=== PATIENT | female | born 1980 | race Caucasian/White ===

== ENCOUNTER 2023-10-24 13:22 | Observation (INO) | payer OTHER, SELFPAY ==
[2023-10-24] VITALS (8 sets, daily range): BP systolic 90–120; BP diastolic 36–61; PULSE 35–54; RESP 12–18; TEMP 36.6; O2SAT 10–100; BMI 23.0
[2023-10-24 14:19] LABS: Basophils # 0.1 10^3/uL (0.0-0.1); Basophils % 0.8 %; Eosinophils # 0.2 10^3/uL (0.0-0.8); Eosinophils % 2.8 %; Hematocrit 40.2 % (36-47); Lymphocytes # 2.2 10^3/uL (0.8-4.8); Lymphocytes % 35.8 %; Mean Corpuscular HGB Conc 33.3 g/dL (30-55); Mean Corpuscular Hemoglobin 32.4 pg (27-33); Mean Corpuscular Volume 97.1 fl (85-98); Mean Platelet Volume 8.8 fL (7.4-10.4); Monocytes # 0.3 10^3/uL (0.2-0.9); Monocytes % 4.7 %; Neutrophils % 55.7 %; Nucleated Red Blood Cells % 0 %; Platelet Count 295 10^3/cmm (157-399); Red Blood Count 4.14 10^6/uL (3.85-5.65); Red Cell Distribution Width 11.8 % (12.1-15.1); White Blood Count 6.11 10^3/uL (3.29-11.43)
[2023-10-24 14:35] LABS: HCG, Serum Qual Negative (Negative)
[2023-10-24 14:37] LABS: Alanine Aminotransferase 13 U/L (0-33); Albumin Level 4.3 g/dL (3.5-5.2); Alkaline Phosphatase 61 U/L (35-105); Anion Gap 11.7 (5-19); Aspartate Amino Transferase 16 U/L (0-32); Blood Urea Nitrogen 7 mg/dL (6-20); Calcium 9.2 mg/dL (8.5-10.5); Carbon Dioxide 29 mmol/L (22-29); Chloride 102 mmol/L (98-107); Creatinine Clr Calc Pharmacy 78.7667; Globulin 2.3 g/dL (1.3-4.6); Glomerular Filtration Rate 78.3 mL/min (90-130); Glucose 89 mg/dL (65-115); Lipase 12 U/L (13-60); Osmolality Calculated 283 mOsm/kg (285-295); Potassium 4.7 mmol/L (3.5-5.1); Sodium 138 mmol/L (136-145); Total Bilirubin 0.3 mg/dL (0.15-1.2); Total Protein 6.6 g/dL (6.6-8.7)
--- NOTE | 2023-10-24 15:30 | ED_ITS ---
Documented by User: Kingsley Roach DO 10/25/23 07:47 HPI - Back Pain/Injury 2 General: Chief Complaint: Back Pain/Injury Stated Complaint: n/v, abd pain, back pain, dizzy Time Seen by Provider: 10/24/23 15:30 Source: patient Mode of arrival: ambulatory History of Present Illness: 43-year-old female presents emergency ro om with complaining of back pain radiating into the groin area and suprapubic region. She is complaining of nausea with abdominal pain history of kidney stones. She denies any dysuria urgency or frequency no hematuria. Symptoms been going on for the last couple of days. No trauma. No fever sweats chills vomiting or diarrhea. No chest pain or shortness of breath MD elicited complaint: back pain Onset (ago): minute(s) Timing: constant Radiation: none Exacerbating factors: none Relieving factors: none Associated symptoms: Deny abdominal pain, arthralgias, chills, change in bowel habits, difficulty walking, dysuria, fatigue, fecal incontinence, fever(s), hematuria, myalgias, nausea, numbness, syncope, tingling/numbness/burning, urinary frequency, urinary urgency, vomiting or weakness Work related injury: No Review of Systems 2 Const: Denies: fever(s), chills or fatigue Card: Denies: chest pain or syncope Resp: Denies: dyspnea GI: Denies: abdominal pain, nausea, vomiting, fecal incontinence or change in bowel habits : Denies: dysuria, urinary frequency, urinary urgency or hematuria Musc: Denies: neck pain or back pain Skin/Breast: Denies: rash Neuro: Denies: difficulty walking PFSH ED 2 PFSH: Medical History History of PCOS Endometriosis Tobacco use disorder Obesity Nephrolithiasis Surgical History H/O: hysterectomy H/O gastric sleeve Family History Grandfather Heart disease Grandmother No problems noted. Mother Diabetes mellitus, type 2 Social History Smoking and tobacco/nicotine status: current every day tobacco/nicotine user Quit status (tobacco/nicotine): considering quitting Alcohol intake: never Substance/Drug Use: never Physical Exam 2 Const: GENERAL APPEARANCE: cooperative and comfortable O RIENTATION/CONSCIOUSNESS: Yes awake, Yes oriented to person, Yes oriented to place and Yes oriented to time HENMT: COMMON NORMALS: normocephalic, atraumatic and hearing grossly normal bilaterally HEAD & SCALP: normocephalic and atraumatic Resp: COMMON NORMALS: normal respiratory effort, No retractions, No use of accessory muscles and clear to auscultation bilaterally AUSCULTATION: clear to auscultation bilaterally Cardio: COMMON NORMALS: regular rate, regular rhythm and No murmurs present (Cardio) RATE: regular rate RHYTHM: regular rhythm GI: COMMON NORMALS: Soft to palpation and No hepatosplenomegaly present A USCULTATION: Yes normoactive bowel sounds PALPATION: Yes Soft to palpation, No Tenderness to palpation present (GI), No Guarding due to palpation present (GI) and Yes No hepatosplenomegaly present Extremity: COMMON NORMALS: normal to inspection, capillary refill normal, no clubbing, cyanosis or edema, no calf tenderness and no pedal edema Neuro: SENSORIUM/ORIENTATION: Yes oriented to person, Yes oriented to place and Yes oriented to time Skin: COMMON NORMALS: no rashes or lesions noted GENERAL SKIN EXAM: no rashes or lesions noted Course 2 Vital Signs: Vital signs: Vital Signs Temperature 98.1 F 10/25/23 07:36 Pulse Rate 44 L 10/25/23 07:36 Respiratory Rate 15 10/25/23 07:36 Blood Pressure 115/62 10/25/23 07:36 Pulse Oximetry 96 10/25/23 07:36 Oxygen Delivery Me thod Room Air 10/25/23 07:36 MDM - Back Pain/Injury Medical Decision Making Care signed out to Dr. Espitia at change of shift. See final notes for diagnosis and disposition. I have discussed the patient's case with the off going physician <Dr. Roach > and I have assumed care of the patient. We have discussed the current lab/radiographic results that have been resulted and the pending tests and the need for admission. Labs 10/25/23 04:28 10/25/23 04:28 Radiology Impressions Abdomen/Pelvis CT 10/24/23 17:[address]: 1[address] No [address] evidence of acute intra-abdominal or pelvic pathology. 2. Additional findings, as above. COMMENTS: Consistent with the [employer]'s Incidental Findings Committee white paper (J Am Rossy Radiol 2018): Any incidental renal lesion less than 1 cm or classified as too small to characterize, or any incidental cystic renal lesion characterized as simple-appearing, is likely benign. No follow-up imaging is recommended for these lesions per consensus recommendations based on imaging criteria. Chest X-Ray 10/24/23 17:12 IMPRESSION: No acute radiographic findings. Laboratory Results WBC 6.11 10^3/uL (3.29-11.43) 10/24/23 14:05 RBC 4.14 10^6/uL (3.85-5.65) 10/24/23 14:05 Hgb 13.40 g/dL (11.27-16.99) 10/24/23 14:05 Hct 40.2 % (36-47) 10/24/23 14:05 MCV 97.1 fl (85-98) 10/24/23 14:05 MCH 32.4 pg (27-33) 10/24/23 14:05 MCHC 33.3 g/dL (30-55) 10/24/23 14:05 RDW 11.8 % (12.1-15.1) L 10/24/23 14:05 Plt Count 295 10^3/cmm (157-399) 10/24/23 14:05 MPV 8.8 fL (7.4-10.4) 10/24/23 14:05 Neut % (Auto) 55.7 % 10/24/23 14:05 Lymph % (Auto) 35.8 % 10/24/23 14:05 [place] % (Auto) 4.7 % 10/24/23 14:05 Eos % (Auto) 2.8 % 10/24/23 14:05 Baso % (Auto) 0.8 % 10/24/23 14:05 Neut # (Auto) 3.40 10^3/uL (1.8-7.7) 10/24/23 14:05 Lymph # (Auto) 2.2 10^3/uL (0.8-4.8) 10/24/23 14:05 [place] # (Auto) 0.3 10^3/uL (0.2-0.9) 10/24/23 14:05 Eos # (Auto) 0.2 10^3/uL (0.0-0.8) 10/24/23 14:05 Baso # (Auto) 0.1 10^3/uL (0.0-0.1) 10/24/23 14:05 Nucleated RBC % (auto) 0 % 10/24/23 14:05 Nucleated RBCs # 0.0 /100WBC 10/24/23 14:05 Sodium 138 mmol/L (136-145) 10/24/23 14:05 Potassium 4.7 mmol/L (3.5-5.1) 10/24/23 14:05 Chloride 102 mmol/L (98-107) 10/24/23 14:05 Carbon Dioxide 29 mmol/L (22-29) 10/24/23 14:05 Anion Gap 11.7 (5-19) 10/24/23 14:05 BUN 7 mg/dL (6-20) 10/24/23 14:05 Creatinine 0.8 mg/dL (0.5-0.9) 10/24/23 14:05 GFR Calculation 78.3 mL/min (90-130) L 10/24/23 14:05 Glucose 89 mg/dL (65-115) 10/24/23 14:05 Calculated Osmolality 283 mOsm/kg (285-295) L 10/24/23 14:05 Calcium 9.2 mg/dL (8.5-10.5) 10/24/23 14:05 Magnesium 2.2 mg/dL (1.7-2.3) 10/24/23 19:57 Total Bilirubin 0.3 mg/dL (0.15-1.2) 10/24/23 14:05 AST 16 U/L (0-32) 10/24/23 14:05 ALT 13 U/L (0-33) 10/24/23 14:05 Alkaline Phosphatase 61 U/L (35-105) 10/24/23 14:05 Troponin T Baseline < 6 ng/L (0-10) 10/24/23 14:05 Troponin T 120 Minute 6.00 ng/L (0-10) 10/24/23 18:06 Delta Troponin T 0.64775 ABS# (0-10) 10/24/23 18:06 Total Protein 6.6 g/dL (6.6-8.7) 10/24/23 14:05 Albumin 4.3 g/dL (3.5-5.2) 10/24/23 14:05 Globulin 2.3 g/dL (1.3-4.6) 10/24/23 14:05 Lipase 12 U/L (13-60) L 10/24/23 14:05 TSH 2.67 uIU/mL (0.27-4.20) 10/24/23 14:05 HCG, Qual Negative (Negative) 10/24/23 14:05 Urine Color Light yellow (Yellow) 10/24/23 16:07 Urine Appearance Clear (CLEAR) 10/24/23 16:07 Urine pH 8 (5-7) H 10/24/23 16:07 Ur Specific [place] 1.020 (1.005-1.030) 10/24/23 16:07 Urine Protein Neg (Negative) 10/24/23 16:07 Urine Glucose (UA) Norm (Normal) 10/24/23 16:07 Urine Ketones Negative (Negative) 10/24/23 16:07 Urine Blood Neg (Negative) 10/24/23 16:07 Urine Nitrate Negative (Negative) 10/24/23 16:07 Urine Bilirubin Neg (Negative) 10/24/23 16:07 Prot Sulfosalicylic Acd Negative (Negative) 10/24/23 16:07 Urine Urobilinogen Norm mg/dL (Negative) 10/24/23 16:07 Ur Leukocyte Esterase Negative (Negative) 10/24/23 16:07 Discharge Plan Discharge Patient Disposition: Admitted As Inpatient Admit Provider: Kodi Gabriel Clinical Impression: Bradycardia, Pre-syncope, Bilateral renal stones Condition: Stable Coding Level of Care Code ED Premium Note Interest Calculator Clerk for Chg Fwd Documented by User: Cuba Espitia MD 10/24/23 19:38 HPI - Back Pain/Injury 2 General: Chief Complaint: Back Pain/Injury Stated Complaint: n/v, abd pain, back pain, dizzy Time Seen by Provider: 10/24/23 15:30 History of Present Illness: 43-year-old female presents emergency ro om with complaining of back pain radiating into the groin area and suprapubic region. She is complaining of nausea with abdominal pain history of kidney stones. She denies any dysuria urgency or frequency no hematuria. Symptoms been going on for the last couple of days. No trauma. No fever sweats chills vomiting or diarrhea. No chest pain or shortness of breath. PFSH ED 2 PFSH: Medical History History of PCOS Endometriosis Tobacco use disorder Obesity Nephrolithiasis Surgical History H/O: hysterectomy H/O gastric sleeve Family History Grandfather Heart disease Grandmother No problems noted. Mother Diabetes mellitus, type 2 Social History Smoking and tobacco/nicotine status: current every day tobacco/nicotine user Quit status (tobacco/nicotine): considering quitting Alcohol intake: never Substance/Drug Use: never Course 2 Vital Signs: Vital signs: Vital Signs Temperature 98.1 F 10/25/23 07:36 Pulse Rate 44 L 10/25/23 07:36 Respiratory Rate 15 10/25/23 07:36 Blood Pressure 115/62 10/25/23 07:36 Pulse Oximetry 96 10/25/23 07:36 Oxygen Delivery Me thod Room Air 10/25/23 07:36 MDM - Back Pain/Injury Medical Decision Making I have discussed the patient's case with the off going physician <Dr. Roach > and I have assumed care of the patient. We have discussed the current lab/radiographic results that have been resulted and the pending tests and the need for admission. Labs I reviewed the patient's lab results. 10/25/23 04:28 10/25/23 04:28 Radiology Impressions Abdomen/Pelvis CT 10/24/23 17:[address]: 1[address] No [address] evidence of acute intra-abdominal or pelvic pathology. 2. Additional findings, as above. COMMENTS: Consistent with the [employer]'s Incidental Findings Committee white paper (J Am Rossy Radiol 2018): Any incidental renal lesion less than 1 cm or classified as too small to characterize, or any incidental cystic renal lesion characterized as simple-appearing, is likely benign. No follow-up imaging is recommended for these lesions per consensus recommendations based on imaging criteria. Chest X-Ray 10/24/23 17:12 IMPRESSION: No acute radiographic findings. Laboratory Results WBC 6.11 10^3/uL (3.29-11.43) 10/24/23 14:05 RBC 4.14 10^6/uL (3.85-5.65) 10/24/23 14:05 Hgb 13.40 g/dL (11.27-16.99) 10/24/23 14:05 Hct 40.2 % (36-47) 10/24/23 14:05 MCV 97.1 fl (85-98) 10/24/23 14:05 MCH 32.4 pg (27-33) 10/24/23 14:05 MCHC 33.3 g/dL (30-55) 10/24/23 14:05 RDW 11.8 % (12.1-15.1) L 10/24/23 14:05 Plt Count 295 10^3/cmm (157-399) 10/24/23 14:05 MPV 8.8 fL (7.4-10.4) 10/24/23 14:05 Neut % (Auto) 55.7 % 10/24/23 14:05 Lymph % (Auto) 35.8 % 10/24/23 14:05 [place] % (Auto) 4.7 % 10/24/23 14:05 Eos % (Auto) 2.8 % 10/24/23 14:05 Baso % (Auto) 0.8 % 10/24/23 14:05 Neut # (Auto) 3.40 10^3/uL (1.8-7.7) 10/24/23 14:05 Lymph # (Auto) 2.2 10^3/uL (0.8-4.8) 10/24/23 14:05 [place] # (Auto) 0.3 10^3/uL (0.2-0.9) 10/24/23 14:05 Eos # (Auto) 0.2 10^3/uL (0.0-0.8) 10/24/23 14:05 Baso # (Auto) 0.1 10^3/uL (0.0-0.1) 10/24/23 14:05 Nucleated RBC % (auto) 0 % 10/24/23 14:05 Nucleated RBCs # 0.0 /100WBC 10/24/23 14:05 Sodium 138 mmol/L (136-145) 10/24/23 14:05 Potassium 4.7 mmol/L (3.5-5.1) 10/24/23 14:05 Chloride 102 mmol/L (98-107) 10/24/23 14:05 Carbon Dioxide 29 mmol/L (22-29) 10/24/23 14:05 Anion Gap 11.7 (5-19) 10/24/23 14:05 BUN 7 mg/dL (6-20) 10/24/23 14:05 Creatinine 0.8 mg/dL (0.5-0.9) 10/24/23 14:05 GFR Calculation 78.3 mL/min (90-130) L 10/24/23 14:05 Glucose 89 mg/dL (65-115) 10/24/23 14:05 Calculated Osmolality 283 mOsm/kg (285-295) L 10/24/23 14:05 Calcium 9.2 mg/dL (8.5-10.5) 10/24/23 14:05 Magnesium 2.2 mg/dL (1.7-2.3) 10/24/23 19:57 Total Bilirubin 0.3 mg/dL (0.15-1.2) 10/24/23 14:05 AST 16 U/L (0-32) 10/24/23 14:05 ALT 13 U/L (0-33) 10/24/23 14:05 Alkaline Phosphatase 61 U/L (35-105) 10/24/23 14:05 Troponin T Baseline < 6 ng/L (0-10) 10/24/23 14:05 Troponin T 120 Minute 6.00 ng/L (0-10) 10/24/23 18:06 Delta Troponin T 0.98409 ABS# (0-10) 10/24/23 18:06 Total Protein 6.6 g/dL (6.6-8.7) 10/24/23 14:05 Albumin 4.3 g/dL (3.5-5.2) 10/24/23 14:05 Globulin 2.3 g/dL (1.3-4.6) 10/24/23 14:05 Lipase 12 U/L (13-60) L 10/24/23 14:05 TSH 2.67 uIU/mL (0.27-4.20) 10/24/23 14:05 HCG, Qual Negative (Negative) 10/24/23 14:05 Urine Color Light yellow (Yellow) 10/24/23 16:07 Urine Appearance Clear (CLEAR) 10/24/23 16:07 Urine pH 8 (5-7) H 10/24/23 16:07 Ur Specific [place] 1.020 (1.005-1.030) 10/24/23 16:07 Urine Protein Neg (Negative) 10/24/23 16:07 Urine Glucose (UA) Norm (Normal) 10/24/23 16:07 Urine Ketones Negative (Negative) 10/24/23 16:07 Urine Blood Neg (Negative) 10/24/23 16:07 Urine Nitrate Negative (Negative) 10/24/23 16:07 Urine Bilirubin Neg (Negative) 10/24/23 16:07 Prot Sulfosalicylic Acd Negative (Negative) 10/24/23 16:07 Urine Urobilinogen Norm mg/dL (Negative) 10/24/23 16:07 Ur Leukocyte Esterase Negative (Negative) 10/24/23 16:07 All radiology interpretation(s) finalized by discharge Discharge Plan Discharge Patient Disposition: Admitted As Inpatient Admit Provider: Kodi Gabriel Clinical Impression: Bradycardia, Pre-syncope, Bilateral renal stones Condition: Stable Coding Level of Care Code ED Premium Note Interest Calculator Clerk for Jose Palafox
--- NOTE | 2023-10-24 15:42 | CTR_ITS ---
PROCEDURE INFORMATION: Exam: CT Abdomen And Pelvis Without Contrast Exam date and time: 10/24/2023 3:47 PM Age: 43 years old Clinical indication: Abdominal pain; Flank; Left; Prior surgery; Surgery date: 6+ months; Surgery type: Hyst; Additional info: Flank pain TECHNIQUE: Imaging protocol: Computed tomography of the abdomen and pelvis without contrast. Radiation optimization: All CT scans at this facility use at least one of these dose optimization techniques: automated exposure control; mA and/or kV adjustment per patient size (includes targeted exams where dose is matched to clinical indication); or iterative reconstruction. COMPARISON: No relevant prior studies available. RADIATION DOSE METRICS: Total DLP (mGy-cm): 419.67 FINDINGS: Lungs: Lung bases are clear. No pleural effusion. Liver: Normal. No mass. Gallbladder and bile ducts: Normal. No calcified stones. No ductal dilation. Pancreas: Normal. No ductal dilation. Spleen: Normal. No splenomegaly. Adrenal glands: Normal. No mass. Kidneys and ureters: The right kidney contains several tiny stones measuring up to 3 mm. The left kidney contains several stones measuring up to 3 mm. I see no ureteral stone or dilatation. Stomach and bowel: There is evidence of previous gastric surgery. A moderate amount of stool is noted throughout much of the colon. Appendix: No evidence of appendicitis. Intraperitoneal space: A small amount of free fluid is noted in the pelvis. Vasculature: Unremarkable. No abdominal aortic aneurysm. Lymph nodes: Unremarkable. No enlarged lymph nodes. Urinary bladder: Unremarkable as visualized. Reproductive: Unremarkable as visualized. Bones/joints: Unremarkable. No acute fracture. Soft tissues: Unremarkable. CT/CT kidney stone [id number] IMPRESSION: 1. Bilateral nephrolithiasis 2. Constipation
[2023-10-24] MEDS: morphine 4 mg/mL SDV 1 mL IVP (15:58)
[2023-10-24] MEDS: ondansetron 2 mg/ML SDV 2 mL 4 MG IVP (15:59)
[2023-10-24] MEDS: sodium chloride 0.9% 1,000 ML 999 ML IV (16:13)
[2023-10-24 16:32] LABS: Add Urine Microscopic? NO; Charge for UA Resulting for Rev
--- NOTE | 2023-10-24 16:48 | ECG_ITS ---
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 Measurements Intervals [place] Rate: 34 P: 66 [place]: 152 QRS: 82 QRSD: 100 T: 68 QT: 494 QTc: 374 Interpretive Statements SINUS BRADYCARDIA CRITICAL TEST RESULT No previous ECG available for comparison Electronically Signed On 10-24-2023 18:43:16 CDT by Meliza Gomez M.D. [id number]
[2023-10-24 17:04] LABS: Bilirubin Urine Neg (Negative); Blood Urine Neg (Negative); Glucose Urine UA Norm (Normal); Ketones Urine Negative (Negative); Leukocyte Esterase Urine Negative (Negative); Nitrate Urine Negative (Negative); Protein Urine Neg (Negative); Sulfosalicylic Acid Urine Negative (Negative); Urine Appearance Clear (CLEAR); Urine Color Light yellow (Yellow); Urobilinogen Urine Norm (Negative); pH Urine 8 (5-7)
--- NOTE | 2023-10-24 17:07 | CTR_ITS ---
PROCEDURE INFORMATION: Exam: CT Abdomen And Pelvis With Contrast Exam date and time: 10/24/2023 5:41 PM Age: 43 years old Clinical indication: Abdominal pain; Generalized; Additional info: Abd pain, discussed with Dr. Donaldson delayed images TECHNIQUE: Imaging protocol: Computed tomography of the abdomen and pelvis with contrast. Axial, coronal and sagittal reformatted images were created and reviewed. Radiation optimization: All CT scans at this facility use at least one of these dose optimization techniques: automated exposure control; mA and/or kV adjustment per patient size (includes targeted exams where dose is matched to clinical indication); or iterative reconstruction. Contrast material: OMNI 350; Contrast volume: 100 ml; Contrast route: INTRAVENOUS (IV); COMPARISON: CT kidney stone [id number] 10/24/2023 3:47 PM RADIATION DOSE METRICS: Total DLP (mGy-cm): 784 FINDINGS: Liver: Unremarkable. Gallbladder and bile ducts: No radiodense gallstones. No biliary ductal dilatation. Pancreas: Unremarkable. Spleen: Unremarkable. Adrenal glands: Normal. No mass. Kidneys and ureters: Subcentimeter low-density right renal lesions, measuring up to 5 mm, too small to characterize. Nonobstructing bilateral renal calculi. No hydronephrosis. Stomach and bowel: Status post gastric sleeve. Moderate amount of retained stool in the colon. No obstruction. No bowel wall thickening. No pneumatosis. Appendix: Normal. Intraperitoneal space: Trace nonspecific free pelvic fluid, likely physiologic. No organized fluid collection. No free air. Vasculature: Unremarkable. No aneurysm. Lymph nodes: No pathologically enlarged lymph nodes. Urinary bladder: Unremarkable as visualized. Reproductive: Status post hysterectomy. Bones/joints: No acute osseous abnormality. Soft tissues: Unremarkable. CT/CT abdomen pelvis w con* [id number] IMPRESSION: 1. No CT evidence of acute intra-abdominal or pelvic pathology. 2. Additional findings, as above. COMMENTS: Consistent with the [employer]'s Incidental Findings Committee white paper (J Am Rossy Radiol 2018): Any incidental renal lesion less than 1 cm or classified as too small to characterize, or any incidental cystic renal lesion characterized as simple-appearing, is likely benign. No follow-up imaging is recommended for these lesions per consensus recommendations based on imaging criteria.
--- NOTE | 2023-10-24 17:12 | XRR_ITS ---
PROCEDURE INFORMATION: Exam: XR Chest Exam date and time: 10/24/2023 5:58 PM Age: 43 years old Clinical indication: Cough and dyspnea; Additional info: Dyspnea/cough TECHNIQUE: Imaging protocol: Radiologic exam of the chest. Views: 1 view. COMPARISON: CT abdomen pelvis w con* [id number] 10/24/2023 5:41 PM FINDINGS: Lungs: Unremarkable. No consolidation. Pleural spaces: Unremarkable. No pleural effusion. No pneumothorax. Heart/Mediastinum: Unremarkable. No cardiomegaly. Bones/joints: Unremarkable. XR/XR chest 1V portable [id number] IMPRESSION: No acute radiographic findings.
--- NOTE | 2023-10-24 17:29 | ECG_ITS ---
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 Measurements Intervals [place] Rate: 36 P: 60 [place]: 156 QRS: 83 QRSD: 101 T: 68 QT: 492 QTc: 384 Interpretive Statements SINUS BRADYCARDIA CRITICAL TEST RESULT Compared to ECG 10/24/2023 16:12:50 No significant changes Electronically Signed On 10-24-2023 18:49:48 CDT by Meliza Gomez M.D. [email or web address]
[2023-10-24] MEDS: iohexol 350 mg/mL 500 mL Btl (per mL) IV (17:44)
[2023-10-24 18:16] LABS: Troponin(5th) Baseline < 6 ng/L (0-10)
[2023-10-24 18:25] LABS: Thyroid Stimulating Hormone 2.67 uIU/mL (0.27-4.20)
[2023-10-24] MEDS: ketorolac 30 mg/mL INJ IVP (19:02)
[2023-10-24 19:08] LABS: Troponin 5 2HR Delta 0.00001 ABS# (0-10)
--- NOTE | 2023-10-24 19:43 | PM.HP ---
Providers/Chief Complaint Chief Complaint: n/v, abd pain, back pain, dizzy History of Present Illness Rhiannon Byrne is a 43 year old female with a past medical history significant for obesity status post gastric sleeve, endometriosis, PCOS, and nephrolithiasis who presents emergency department with severe low back and abdominal pain. She reports the pain initially began in her left flank area. Reports radiation to the left inguinal area and abdominal suprapubic region. She initially rates the pain about a 8 out of 10. She states the pain feels like a prior kidney stone. She states last time she had a kidney stone was about 5 years ago. States she is never required any intervention for stones. But they would intermittently into the ureter and cause pain. She received pain medication in the emergency department which she states significantly improved the pain. She is now comfortable. She denies fevers, chills, nausea or emesis. Denies dysuria or hematuria. In the emergency department, CT kidney stone revealed bilateral nephrolithiasis and constipation. The right kidney showed several tiny stones measuring up to 3 mm. The left kidney stone showed several stones up to 3 mm as well. There is no obstructive nephrolithiasis. Urinalysis was obtained which was largely unremarkable. There is no evidence of infection on urinalysis. The abdominal/pelvic CT scan was repeated with contrast which revealed no CT evidence of acute intracranial abdominal or pelvic pathology. Subcentimeter renal stones measuring up to 5 mm was again noted without obstruction. Her emergency course was complicated by bradycardia. Reported heart rates from ED provider was low 30s to 50s. Patient was symptomatic with lightheadedness and dizziness with heart rate in the 30s to 40s. Patient denies any prior history of severe bradycardia. She states the lowest her heart rates ever been she believes is 52 which she noticed one time on her Fitbit. She denies any personal history of cardiac arrhythmias. She notes that heart disease runs on the father side of her family with her paternal grandfather and paternal great from brother both dying of heart disease. Review of Systems Narrative: A complete review of systems was obtained and is negative except as stated in HPI. Medications/Allergies Allergies Allergy/AdvReac Type Severity Reaction Status Date / Time Sulfa (Sulfonamide Allergy ALGY-Hives Verified 10/24/23 13:35 Antibiotics) PFSH Acute PFSH: Medical History History of PCOS Endometriosis Tobacco use disorder Obesity Nephrolithiasis Surgical History H/O: hysterectomy H/O gastric sleeve Family History Grandfather Heart disease Grandmother No problems noted. Mother Diabetes mellitus, type 2 Social History Smoking and tobacco/nicotine status: current every day tobacco/nicotine user Quit status (tobacco/nicotine): considering quitting Alcohol intake: never Substance/Drug Use: never Vitals/I&O/Wt Last Vital Signs Temp 97.9 F 10/24/23 13:33 Pulse 45 L 10/24/23 19:07 Resp 17 10/24/23 19:07 BP 120/55 10/24/23 19:07 Pulse Ox 100 10/24/23 19:07 O2 Del Method Room Air 10/24/23 16:06 Weight last 48 hrs Weight 58.967 kg Physical Exam Narrative: General: Patient is awake and alert. Pleasant. Head: Normocephalic. Atraumatic. EOM intact. Neck: No JVD. Cardiovascular: Rhythm is regular. Bradycardic rates. No gallops. No murmurs. No peripheral edema. Lungs: Clear to auscultation, no use of accessory muscles, no crackles or wheezes. Skin: No jaundice. No rashes. Abdomen: Normal bowel sounds, abdomen soft and nontender. Genito Urinary: Genital exam not performed since complaints not related. Rectal: Rectal exam not performed since no symptoms indicated blood loss. Extremities: No cyanosis or clubbing. Musculoskeletal:No swollen or erythematous joints. Neurological: Moves all 4 extremities. No myoclonus. Data 10/24/23 14:05 10/24/23 14:05 A&P Assessment and plan (1) Bradycardia: Patient reportedly dizzy and lightheaded during bradycardic events Not on AV thad blocking agents Electrolytes reviewed, largely unremarkable Check thyroid function Continuous cardiopulmonary monitoring Echocardiogram ordered Cardiology consulted (2) Nephrolithiasis: Nonobstructive bilateral nephrolithiasis Suspect culprit of flank/abdominal pains Analgesics as needed Status post IV fluids Encourage oral intake (3) Constipation: Imaging reviewed, constipation noted Start stool softener (4) Tobacco use disorder: Patient reports smoking about half pack per day Encourage smoking cessation, she is considering, previously quit for around 20 years at one time Smoking cessation discussed for 3 minutes Plan DVT prophylaxis: Lovenox CODE STATUS: Full code Attestations Medical Necessity Statement*: Patient presents with flank and abdominal pains, found to have symptomatic nonobstructive nephrolithiasis of the ED course complicated by symptomatic bradycardia of unclear etiology; admitting to observation for cardiopulmonary monitoring, echo, and cardiology evaluation. Coding Level of Care Code Acute Code for [facility] Fwd Diagnoses Bradycardia R00.1 Nephrolithiasis N20.0 Constipation K59.00 Tobacco use disorder F17.200
[2023-10-24 20:37] LABS: Magnesium 2.2 mg/dL (1.7-2.3)
[2023-10-24] MEDS: dextrose 5%-sod chloride 0.45% 1,000 ML 75 ML IV (21:44)
[2023-10-24] MEDS: tamsulosin 0.4 mg Capsule 0.400000000000000022 MG PO (21:45)
[2023-10-24] MEDS: zolpidem 5 mg Tablet PO (21:45)
[2023-10-24] MEDS: sennosides 8.6 mg Tablet 17.1999999999999993 MG PO (21:45)
[2023-10-24] MEDS: enoxaparin 40 mg/0.4 mL Syringe SUBCUT (21:46)
--- NOTE | 2023-10-24 23:20 | ECG_ITS ---
[facility] Test Date: 2023-10-24 Pat Name: Rhiannon Byrne Department: Room: 107 Gender: Female Director Of Accreditation: : 1980 Requested By: Kingsley Bojorquez Order Number: [id number] Chaparrita MD: Mich Mock M.D. Measurements Intervals [place] Rate: 46 P: 0 NC: 0 QRS: 104 QRSD: 101 T: 128 QT: 470 QTc: 412 Interpretive Statements ATRIAL FIBRILLATION WITH SLOW VENTRICULAR RESPONSE RIGHT AXIS DEVIATION [QRS AXIS > 100] Compared to ECG 10/24/2023 17:29:07 Right-axis deviation now present Sinus bradycardia no longer present Electronically Signed On 10-26-2023 17:13:38 CDT by Mich Mock M.D. [id number]
[2023-10-25] VITALS (8 sets, daily range): BP systolic 91–129; BP diastolic 57–75; PULSE 36–49; RESP 13–20; TEMP 36.7–36.9; O2SAT 95–99
[2023-10-25] MEDS: HYDROcodone-acetaminophen 5-325 mg Tablet 1 TAB PO ×5 (02:12→21:11)
[2023-10-25 05:00] LABS: Basophils % 0.6 %; Eosinophils # 0.3 10^3/uL (0.0-0.8); Eosinophils % 4.5 %; Hematocrit 36.8 % (36-47); Lymphocytes # 3.2 10^3/uL (0.8-4.8); Lymphocytes % 47.2 %; Mean Corpuscular HGB Conc 32.6 g/dL (30-55); Mean Corpuscular Hemoglobin 31.7 pg (27-33); Mean Corpuscular Volume 97.4 fl (85-98); Mean Platelet Volume 9.3 fL (7.4-10.4); Monocytes # 0.4 10^3/uL (0.2-0.9); Monocytes % 5.5 %; Neutrophils # 2.84 10^3/uL (1.8-7.7); Neutrophils % 42.1 %; Nucleated Red Blood Cells % 0 %; Platelet Count 252 10^3/cmm (157-399); Red Blood Count 3.78 10^6/uL (3.85-5.65); Red Cell Distribution Width 11.9 % (12.1-15.1); White Blood Count 6.74 10^3/uL (3.29-11.43)
[2023-10-25 05:19] LABS: Anion Gap 13.5 (5-19); Blood Urea Nitrogen 9 mg/dL (6-20); Carbon Dioxide 25 mmol/L (22-29); Chloride 106 mmol/L (98-107); Creatinine Clr Calc Pharmacy 92.7203; Glomerular Filtration Rate 91.3 mL/min (90-130); Glucose 93 mg/dL (65-115); Magnesium 2.2 mg/dL (1.7-2.3); Osmolality Calculated 288 mOsm/kg (285-295); Phosphorus 4.1 mg/dL (2.5-4.5); Potassium 4.5 mmol/L (3.5-5.1); Sodium 140 mmol/L (136-145)
--- NOTE | 2023-10-25 06:28 | P.CONIM_ITS ---
Providers/Reason For Consult 2 Consulting Physician/Specialty*: Mich Mock MD/ Cardiology Reason for Consult*: Bradycardia Requesting Physician: Dr Roach Attending Physician: Kodi Gabriel MD History of Present Illness History of Present Illness Rhiannon Byrne is a 43 year old female with no significant prior cardiac history who presented to hospital with low back and abdominal pain. She has nephrolithiasis. Cardiology was consulted as she has sinus bradycardia. On my evaluation, patient denies any symptoms including dizziness lightheadedness or chest pain. No syncopal episodes. She says heart rate has stayed low over the past as well. EKG or telemetry monitoring is not showing any heart block. Echo shows normal LV systolic function. Review of Systems 2 Const: Denies: fever(s), chills or fatigue Card: Denies: chest pain or syncope Resp: Denies: dyspnea GI: Denies: abdominal pain, nausea, vomiting, fecal incontinence or change in bowel habits : Denies: dysuria, urinary frequency, urinary urgency or hematuria Musc: Denies: neck pain or back pain Skin/Breast: Denies: rash Neuro: Denies: difficulty walking Medications/Allergies Home Medications Medication Instructions Recorded Confirmed Last Taken Type No Known Home Medications 10/25/23 10/25/23 Unknown History Allergies Allergy/AdvReac Type Severity Reaction Status Date / Time Sulfa (Sulfonamide Allergy ALGY-Hives Verified 10/24/23 13:35 Antibiotics) Current Medications Generic Name Dose Route Start Last Admin Trade Name Freq PRN Reason Stop Dose Admin Hydrocodone Bitart/Acetaminophen 1 tab 10/24/23 20:39 10/25/23 02:12 Hydrocodone-Acetaminophen 5-325 Mg Tablet PO 1 tab Q4H PRN Administration MODERATE TO SEVERE PAIN Enoxaparin Sodium 40 mg 10/24/23 20:39 10/24/23 21:46 Enoxaparin 40 Mg/0.4 Ml Syringe SUBCUT 40 mg Q24H INGE Administration Dextrose/Sodium Chloride 1,000 mls @ 75 mls/hr 10/24/23 20:39 10/24/23 21:44 Dextrose 5%-Sod Chloride 0.45% IV 75 mls/hr .[id number] INGE Administration Senna 17.2 mg 10/24/23 21:00 10/24/23 21:45 Sennosides 8.6 Mg Tablet PO 17.2 mg BEDTIME INGE Administration Tamsulosin HCl 0.4 mg 10/24/23 20:39 10/24/23 21:45 Tamsulosin 0.4 Mg Capsule PO 0.4 mg DAILY INGE Administration Zolpidem Tartrate 5 mg 10/24/23 21:13 10/24/23 21:45 Zolpidem 5 Mg Tablet PO 5 mg BEDTIME PRN Administration INSOMNIA PFSH Acute 2 PFSH: Medical History History of PCOS Endometriosis Tobacco use disorder Obesity Nephrolithiasis Surgical History H/O: hysterectomy H/O gastric sleeve Family History Grandfather Heart disease Grandmother No problems noted. Mother Diabetes mellitus, type 2 Social History Smoking and tobacco/nicotine status: current every day tobacco/nicotine user Quit status (tobacco/nicotine): considering quitting Alcohol intake: never Substance/Drug Use: never Vitals/I&O/Wt Last Vital Signs Temp 98.2 F 10/25/23 04:00 Pulse 38 L 10/25/23 05:26 Resp 15 10/25/23 04:00 BP 91/57 10/25/23 04:00 Pulse Ox 96 10/25/23 04:00 O2 Del Method Room Air 10/25/23 04:00 10/24/23 10/24/23 10/25/23 14:59 22:59 06:59 Intake Total 1000 / 1000 0 / 1000 Output Total 100 / 100 Balance 1000 / 1000 -100 / 900 Weight last 48 hrs Weight 139 lb 1.6 oz Weight 130 lb Weight 130 lb Physical Exam 2 Narrative: GENERAL: Patient is alert, awake and oriented x3. [] NECK: No jugular vein distension. [] HEENT: No cyanosis. No icterus. No pallor. [] HEART: Bradycardia, Regular S1 and S2. No murmur, rub or gallop. [] LUNGS: Clear to auscultate bilaterally. [] CENTRAL NERVOUS SYSTEM: Grossly nonfocal. [] EXTREMITIES: Lower extremities with 1+ edema bilaterally. Data 10/25/23 04:28 10/25/23 04:28 A&P Assessment and plan (1) Bradycardia: (2) Nephrolithiasis: (3) Constipation: (4) Tobacco use disorder: Plan Patient has sinus bradycardia. However she is asymptomatic. Primary complain was renal colic. Once she is stable, can perform exercise stress test to see chronotropic competence. Avoid rate limiting medications. Echo shows normal LV systolic function. Thank you for involving us with care of this patient. Will continue to follow. Please call with questions. Consult Attestations 2 Medical Necessity Statement: Care expected to cross 2 midnights. Coding Level of Care Code Acute Code for [facility] Diagnoses Bradycardia R00.1 Nephrolithiasis N20.0 Constipation K59.00 Tobacco use disorder F17.200
[2023-10-25] MEDS: tamsulosin 0.4 mg Capsule 0.400000000000000022 MG PO (07:53)
--- NOTE | 2023-10-25 13:32 | PM.PN ---
Subjective Subjective: No acute overnight events noted but she still has complaint of low back pain radiating to the groin, and feeling nauseous Medications: Reviewed: Yes Vitals/I&O/Wt Last Vital Signs Temp 98.5 F 10/25/23 11:28 Pulse 43 L 10/25/23 11:28 Resp 14 10/25/23 11:28 BP 118/75 10/25/23 11:28 Pulse Ox 97 10/25/23 11:28 O2 Del Method Room Air 10/25/23 11:28 10/24/23 10/25/23 10/25/23 22:59 06:59 14:59 Intake Total 1000 / 1000 0 / 1000 1360 / 1360 Output Total 100 / 100 Balance 1000 / 1000 -100 / 900 1360 / 1360 Weight last 48 hrs Weight 63.095 kg Weight 58.967 kg Weight 58.967 kg Physical Exam Narrative: She is alert awake oriented x 3 in mild distress due to pain Chest clear to auscultation bilaterally Cardiovascular normal heart sounds Abdomen NAD Extremities no edema noted Data 10/25/23 04:28 10/25/23 04:28 A&P Assessment and plan (1) Bradycardia: Continuous cardiac monitoring Follow-up cardiology consult and 2D echo Plan for stress test once renal colicky pain under control (2) Nephrolithiasis: Nonobstructive bilateral nephrolithiasis Continue IV fluids normal saline at 100 mL/h Pain control with IV morphine 2 mg every 4 hours as needed P.o. Percocet 1 tab every 6 hours as needed Encourage p.o. fluid intake (3) Constipation: (4) Tobacco use disorder: Educated and counseled about smoking cessation Plan DVT prophylaxis: Lovenox CODE STATUS: Full code Attestations Medical Necessity Statement*: She needs continued hospitalization for renal colic with IV fluids and IV pain medications. She also needs a stress test for bradycardia to rule out ACS, cardiology to do the stress test once renal colic pain improves Time Spent in Patient Care: 20 minutes Coding Level of Care Code Acute Code for [facility] Fwd Diagnoses Bradycardia R00.1 Nephrolithiasis N20.0 Constipation K59.00 Tobacco use disorder F17.200 Time Spent (min) 20
[2023-10-25] MEDS: morphine 4 mg/mL SDV 1 mL 2 MG IVP (14:24)
[2023-10-25] MEDS: sodium chloride 0.9% 1,000 ML 100 ML IV (14:26)
--- NOTE | 2023-10-25 20:15 | USCV_ITS ---
Rhiannon Byrne Age: 43 Gender: F : 1980 Exam Date: 10/25/2023 00:42 Ordering Phys: Kodi Gabriel MD Technologist: EMIR Exam Location: [facility] [place] Indication: symptomatic bradycardia. BP: 104 / 61 HR: 42 Rhythm: Sinus bradycardia Technical Quality: Good MEASUREMENTS (Male / Female) Normal Values 2D ECHO LV Diastolic Diameter PLAX 3.9 cm 4.2 - 5.9 / 3.9 - 5.3 cm IVS Diastolic Thickness 1.4 cm 0.6 - 1.0 / 0.6 - 0.9 cm IVS Systolic Thickness 1.7 cm LVPW Diastolic Thickness 1.1 cm 0.6 - 1.0 / 0.6 - 0.9 cm LVPW Systolic Thickness 1.7 cm LVOT Diameter 1.5 cm LV Ejection Fraction 2D Teich 67.8 % LV Ejection Fraction MOD 2C 64.0 % LV Ejection Fraction 2C AL 63.0 % LA Diameter 3.2 cm LA Sys Volume AL 30.9 cm cubed Aorta at Sinotubular Diameter 2.8 cm IVC Diameter 2.3 cm M-MODE LA Ao Ratio MM 1.1 AV Cusp Separation MM 1.9 cm DOPPLER AV Peak Velocity 95.0 cm/s LVOT Peak Velocity 81.0 cm/s AV Area Cont Eq vti 1.5 cm squared AV Area Cont Eq pk 1.4 cm squared MV Peak Velocity 116.0 cm/s MV Area PHT 2.9 cm squared Mitral E to A Ratio 1.9 TR Peak Velocity 190.0 cm/s TR Peak Gradient 14.4 mmHg TV Peak E Velocity 52.0 cm/s Right Atrial Pressure 3.0 mmHg Pulmonary Artery Systolic Pressu 17.4 mmHg PV Peak Velocity 68.0 cm/s FINDINGS Left Ventricle Left ventricle is normal in size. LV systolic function is normal with EF of 55 to 60%. No regional wall motion abnormalities are seen. Right Ventricle Normal in size and function Right Atrium Normal in size Left Atrium Normal in size Mitral Valve Structurally normal mitral valve. Aortic Valve Structurally normal aortic valve. No significant stenosis or regurgitation. Tricuspid Valve Mild tricuspid regurgitation. Pulmonary artery systolic pressure is normal. Pulmonic Valve Not well visualized Pericardium Normal Aorta Normal in size IVC Appears to be dilated CONCLUSIONS LV systolic function is normal with EF of 55-60% Mild tricuspid regurgitation. IVC appears dilated No comparison studies are available. Mich Mokc MD (Electronically Signed) Final Date: 25 October 2023 16:46 S
[2023-10-25] MEDS: sennosides 8.6 mg Tablet 17.1999999999999993 MG PO (20:33)
[2023-10-25] MEDS: enoxaparin 40 mg/0.4 mL Syringe SUBCUT (20:33)
[2023-10-25] MEDS: ketorolac 10 mg Tablet PO (20:33)
[2023-10-26] VITALS: BP 110/57; PULSE 47; RESP 20; TEMP 36.8; O2SAT 98
[2023-10-26] MEDS: HYDROcodone-acetaminophen 5-325 mg Tablet 1 TAB PO ×2 (01:40→08:10)
[2023-10-26 04:00] VITALS: BP 124/72; PULSE 66; RESP 14; TEMP 36.9; O2SAT 99
[2023-10-26 05:15] VITALS: PULSE 41
--- NOTE | 2023-10-26 07:07 | PM.PN ---
Subjective Subjective: Patient is doing well. No chest pain Vitals/I&O/Wt Last Vital Signs Temp 98.4 F 10/26/23 04:00 Pulse 41 L 10/26/23 05:15 Resp 14 10/26/23 04:00 BP 124/72 10/26/23 04:00 Pulse Ox 99 10/26/23 04:00 O2 Del Method Room Air 10/26/23 04:00 10/25/23 10/26/23 10/26/23 22:59 06:59 14:59 Intake Total 1200 / 2560 Output Total 0 / 0 Balance 1200 / 2560 Weight last 48 hrs Weight 134 lb 3.2 oz Weight 139 lb 1.6 oz Weight 130 lb Weight 130 lb Physical Exam Narrative: GENERAL: Patient is alert, awake and oriented x3. [] NECK: No jugular vein distension. [] HEENT: No cyanosis. No icterus. No pallor. [] HEART: Bradycardia, Regular S1 and S2. No murmur, rub or gallop. [] LUNGS: Clear to auscultate bilaterally. [] CENTRAL NERVOUS SYSTEM: Grossly nonfocal. [] EXTREMITIES: Lower extremities with 1+ edema bilaterally. Data 10/25/23 04:28 10/25/23 04:28 A&P Assessment and plan (1) Bradycardia: (2) Nephrolithiasis: (3) Constipation: (4) Tobacco use disorder: Plan Patient is bradycardic but asymptomatic. Wants to have outpatient stress test. We will obtain event monitor as well. Thank you for involving us with care of this patient. Please call with questions. Attestations Medical Necessity Statement*: Care expected to cross 2 midnights. Coding Level of Care Code Acute Code for [facility] Fwd Diagnoses Bradycardia R00.1 Nephrolithiasis N20.0 Constipation K59.00 Tobacco use disorder F17.200
[2023-10-26 08:00] VITALS: BP 111/65; PULSE 67; RESP 19; TEMP 36.8; O2SAT 99
[2023-10-26] MEDS: tamsulosin 0.4 mg Capsule 0.400000000000000022 MG PO (08:10)
--- NOTE | 2023-10-26 09:21 | PM.DCS ---
Discharge Providers Date of Admission: 10/24/23 20:21 Date of Discharge: October 26, 2023 Attending Provider at Admission: Kodi Gabriel MD Attending Provider at Discharge: Margret Ocampo MD Consults: Cardiology Diagnoses at Discharge Discharge Diagnosis (1) Bradycardia: Status: Acute (2) Nephrolithiasis: Status: Acute (3) Constipation: Status: Acute (4) Tobacco use disorder: Status: Acute Reason for Visit Reason for Visit: n/v, abd pain, back pain, dizzy Brief History: Rhiannon Byrne is a 43 year old female with a past medical history significant for obesity status post gastric sleeve, endometriosis, PCOS, and nephrolithiasis who presents emergency department with severe low back and abdominal pain. She reports the pain initially began in her left flank area. Reports radiation to the left inguinal area and abdominal suprapubic region. She initially rates the pain about a 8 out of 10. She states the pain feels like a prior kidney stone. She states last time she had a kidney stone was about 5 years ago. States she is never required any intervention for stones. But they would intermittently into the ureter and cause pain. She received pain medication in the emergency department which she states significantly improved the pain. She is now comfortable. She denies fevers, chills, nausea or emesis. Denies dysuria or hematuria. In the emergency department, CT kidney stone revealed bilateral nephrolithiasis and constipation. The right kidney showed several tiny stones measuring up to 3 mm. The left kidney stone showed several stones up to 3 mm as well. There is no obstructive nephrolithiasis. Urinalysis was obtained which was largely unremarkable. There is no evidence of infection on urinalysis. The abdominal/pelvic CT scan was repeated with contrast which revealed no CT evidence of acute intracranial abdominal or pelvic pathology. Subcentimeter renal stones measuring up to 5 mm was again noted without obstruction. Her emergency course was complicated by bradycardia. Reported heart rates from ED provider was low 30s to 50s. Patient was symptomatic with lightheadedness and dizziness with heart rate in the 30s to 40s. Patient denies any prior history of severe bradycardia. She states the lowest her heart rates ever been she believes is 52 which she noticed one time on her Fitbit. She denies any personal history of cardiac arrhythmias. She notes that heart disease runs on the father side of her family with her paternal grandfather and paternal great from brother both dying of heart disease. Hospital Course Hospital Course She was admitted to [facility] for continuous cardiac monitoring Heart rate remained in 50s to 60s. She was asymptomatic She still has renal colic pain but improved since admission on pain medications IV morphine and Percocet. Encouraged to take p.o. liquids 3 to 4 L/day 2D echo showed no acute changes, will follow-up with cardiology at outpatient for stress test She is doing better and is ready to be discharged home. Physical Exam Narrative: She is alert awake oriented x 3 in mild distress due to pain Chest clear to auscultation bilaterally Cardiovascular normal heart sounds Abdomen NAD Extremities no edema noted Discharge Data Studies Completed and Pending Completed Studies During Hospitalization Category Date Time Status CT abdomen pelvis w con* [id number] Stat Cat Scan 10/24/23 17:[address] kidney stone [id number] Stat Cat Scan 10/24/23 15:42 Completed XR chest 1V portable [id number] Stat Exams 10/24/23 17:12 Completed CV. echo complete* [id number] Stat Ultrasound 10/25/23 20:15 Completed Pending at discharge Category Date Time Status Vitamin B1 (Thiamine),Blood Routine Lab 10/24/23 20:30 Received Radiology Impressions Abdomen/Pelvis CT 10/24/23 17:[address]: [address] evidence of acute intra-abdominal or pelvic pathology. 2. Additional findings, as above. COMMENTS: Consistent with the [employer]'s Incidental Findings Committee white paper (J Am Rossy Radiol 2018): Any incidental renal lesion less than 1 cm or classified as too small to characterize, or any incidental cystic renal lesion characterized as simple-appearing, is likely benign. No follow-up imaging is recommended for these lesions per consensus recommendations based on imaging criteria. Chest X-Ray 10/24/23 17:12 IMPRESSION: No acute radiographic findings. Laboratory Results WBC 6.74 10^3/uL (3.29-11.43) 10/25/23 04:28 RBC 3.78 10^6/uL (3.85-5.65) L 10/25/23 04:28 Hgb 12.00 g/dL (11.27-16.99) 10/25/23 04:28 Hct 36.8 % (36-47) 10/25/23 04:28 MCV 97.4 fl (85-98) 10/25/23 04:28 MCH 31.7 pg (27-33) 10/25/23 04: MCHC 32.6 g/dL (30-55) 10/25/23 04: RDW 11.9 % (12.1-15.1) L 10/25/23 04:28 Plt Count 252 10^3/cmm (157-399) 10/25/23 04: MPV 9.3 fL (7.4-10.4) 10/25/23 04: Neut % (Auto) 42.1 % 10/25/23 04: Lymph % (Auto) 47.2 % 10/25/23 04: [place] % (Auto) 5.5 % 10/25/23 04: Eos % (Auto) 4.5 % 10/25/23 04: Baso % (Auto) 0.6 % 10/25/23 04: Neut # (Auto) 2.84 10^3/uL (1.8-7.7) 10/25/23 04: Lymph # (Auto) 3.2 10^3/uL (0.8-4.8) 10/25/23 04: [place] # (Auto) 0.4 10^3/uL (0.2-0.9) 10/25/23 04: Eos # (Auto) 0.3 10^3/uL (0.0-0.8) 10/25/23 04: Baso # (Auto) 0.0 10^3/uL (0.0-0.1) 10/25/23 04: Nucleated RBC % (auto) 0 % 10/25/23 04: Nucleated RBCs # 0.0 /100WBC 10/25/23 04:28 Sodium 140 mmol/L (136-145) 10/25/23 04:28 Potassium 4.5 mmol/L (3.5-5.1) 10/25/23 04: Chloride 106 mmol/L (98-107) 10/25/23 04: Carbon Dioxide 25 mmol/L (22-29) 10/25/23 04:28 Anion Gap 13.5 (5-19) 10/25/23 04: BUN 9 mg/dL (6-20) 10/25/23 04:28 Creatinine 0.7 mg/dL (0.5-0.9) 10/25/23 04: GFR Calculation 91.3 mL/min (90-130) 10/25/23 04: Glucose 93 mg/dL (65-115) 10/25/23 04: Calculated Osmolality 288 mOsm/kg (285-295) 10/25/23 04: Calcium 9.0 mg/dL (8.5-10.5) 10/25/23 04: Phosphorus 4.1 mg/dL (2.5-4.5) 10/25/23 04: Magnesium 2.2 mg/dL (1.7-2.3) 10/25/23 04: Total Bilirubin 0.3 mg/dL (0.15-1.2) 10/24/23 14:05 AST 16 U/L (0-32) 10/24/23 14:05 ALT 13 U/L (0-33) 10/24/23 14:05 Alkaline Phosphatase 61 U/L (35-105) 10/24/23 14:05 Troponin T Baseline < 6 ng/L (0-10) 10/24/23 14:05 Troponin T 120 Minute 6.00 ng/L (0-10) 10/24/23 18:06 Delta Troponin T 0.50333 ABS# (0-10) 10/24/23 18:06 Total Protein 6.6 g/dL (6.6-8.7) 10/24/23 14:05 Albumin 4.3 g/dL (3.5-5.2) 10/24/23 14:05 Globulin 2.3 g/dL (1.3-4.6) 10/24/23 14:05 Lipase 12 U/L (13-60) L 10/24/23 14:05 TSH 2.67 uIU/mL (0.27-4.20) 10/24/23 14:05 HCG, Qual Negative (Negative) 10/24/23 14:05 Urine Color Light yellow (Yellow) 10/24/23 16:07 Urine Appearance Clear (CLEAR) 10/24/23 16:07 Urine pH 8 (5-7) H 10/24/23 16:07 Ur Specific [place] 1.020 (1.005-1.030) 10/24/23 16:07 Urine Protein Neg (Negative) 10/24/23 16:07 Urine Glucose (UA) Norm (Normal) 10/24/23 16:07 Urine Ketones Negative (Negative) 10/24/23 16:07 Urine Blood Neg (Negative) 10/24/23 16:07 Urine Nitrate Negative (Negative) 10/24/23 16:07 Urine Bilirubin Neg (Negative) 10/24/23 16:07 Prot Sulfosalicylic Acd Negative (Negative) 10/24/23 16:07 Urine Urobilinogen Norm mg/dL (Negative) 10/24/23 16:07 Ur Leukocyte Esterase Negative (Negative) 10/24/23 16:07 Vitals Last Vital Signs Temp 98.3 F 10/26/23 08:00 Pulse 67 10/26/23 08:00 Resp 19 H 10/26/23 08:00 BP 111/65 10/26/23 08:00 Pulse Ox 99 10/26/23 08:00 O2 Del Method Room Air 10/26/23 04:00 Discharge Plan Discharge Patient Disposition: Home Condition: Stable Prescriptions: New ondansetron HCl 4 mg Tablet 4 mg PO Q8H PRN (Reason: Nausea) 7 Days Qty: 21 0RF tamsulosin 0.4 mg Capsule 0.4 mg PO DAILY 7 Days Qty: 7 0RF oxycodone-acetaminophen [Percocet] 5-325 mg tablet 1 tab PO Q6H PRN (Reason: pain) Qty: 20 0RF Discharge Orders: Discharge Order (Routine); Ordered 10/26/23 Ordered By: Margret Ocampo Other Ambulatory Orders: MCT/Event Monitor 7 Days (Routine) Timeframe: 7 Days Facility: [facility] - Location: Radiology Ordered By: Margret Ocampo Discharge Diet: Regular Discharge Activity: Increase activity as tolerated Patient Instructions: Opioid Safety, Pain Management Activity Restrictions/Additional Instructions: Follow-up PROVIDER RELATIONS REP Tiffany in 1 week Follow-up PCP in 1 week Discharge Attestations Time Spent in Discharge Care*: less than 30 min Quality Metrics Clinical Quality Measures [ No reported AMI, CVA or VTE this stay] Coding Level of Care Code Acute Code for Chg Fwd Diagnoses Bradycardia R00.1 Nephrolithiasis N20.0 Constipation K59.00 Tobacco use disorder F17.200 Time Spent (min) 20
[2023-10-26 10:11] VITALS: BP 111/65; PULSE 67; RESP 19; TEMP 36.8; O2SAT 99
--- NOTE | 2023-10-26 10:40 | PC.NURSE ---
Patient given discharge paperwork, she is discharged and leaves via a private car with her . She states understanding with the discharge.
[2023-10-28 22:50] LABS: Vitamin B1 (Thiamine),Blood 98 nmol/L (78-185)
== END 2023-10-26 10:35 | disposition home or self-care (01) ==
LOC: ER 20:04 → CSU 10-25 06:15
PROVIDERS: Emergency Medicine; Family Medicine; Admitting Provider Internal Medicine; Emergency Provider Internal Medicine; Visit Provider Internal Medicine
DX: R00.1 Bradycardia, unspecified (principal); N20.0 Calculus of kidney; K59.00 Constipation, unspecified; F17.200 Nicotine dependence, unspecified, uncomplicated; E66.9 Obesity, unspecified; Z68.23 Body mass index [BMI] 23.0-23.9, adult; Z98.84 Bariatric surgery status; E28.2 Polycystic ovarian syndrome; Z82.49 Family history of ischemic heart disease and other diseases of the circulatory system
CPT/HCPCS: 36415; 71045; 74176; 74177; 80048; 80053; 81003; 83690; 83735; 84100; 84425; 84443; 84484; 84703; 85025; 93005; 93306; 96361; 96372; 96374; 96375; 96376; 99285; G0378; J1650; J1885; J2270; J2405; J7030; J7799; Q9967

== ENCOUNTER 2023-11-08 07:37 | Emergency (ER) | payer OTHER, SELFPAY ==
[2023-11-08 07:42] VITALS: BP 156/96; PULSE 74; RESP 15; TEMP 36.6; O2SAT 97; BMI 23.0
--- NOTE | 2023-11-08 07:49 | ED_ITS ---
HPI - Dizziness 2 General: Chief Complaint: Dizziness Stated Complaint: N/V / heart racing Time Seen by Provider: 11/08/23 07:40 History of Present Illness: HPI Narrative: 43-year-old female who presents the [facility] room with nausea and vomiting, lightheadedness, near syncope, and generalized back pain. Started overnight. She said she feels like her heart is racing. Her heart rate is in the 70s on presentation, however she says she has been bradycardic lately and actually has a cardiology appointment to evaluate her for bradycardia. Review of Systems 2 Narrative: Constitutional symptoms: Negative except as documented in HPI. Skin symptoms: Negative except as documented in HPI. Eye symptoms: Negative except as documented in HPI. ENMT symptoms: Negative except as documented in HPI. Respiratory symptoms: Negative except as documented in HPI. Cardiovascular symptoms: Negative except as documented in HPI. Gastrointestinal symptoms: Negative except as documented in HPI. Genitourinary symptoms: Negative except as documented in HPI. Musculoskeletal symptoms: Negative except as documented in HPI. Neurologic symptoms: Negative except as documented in HPI. Psychiatric symptoms: Negative except as documented in HPI. Endocrine symptoms: Negative except as documented in HPI. [facility] 2 PFSH: Medical History (Updated 11/08/23 @ 09:26 by Manjula Calvo MD) Insomnia History of multiple miscarriages Tonsil stone Tobacco use disorder Mild tricuspid regurgitation Bradycardia observed during 10/2023 hospitalization Nephrolithiasis Obesity s/p gastric sleeve surgery History of PCOS Constipation Endometriosis Generalized anxiety disorder with panic attacks Major depression Surgical History Hx of wisdom tooth extraction Hx of appendectomy at age 15 H/O: hysterectomy 2019-complete with oopherectomy H/O gastric sleeve 2022 Family History Grandfather Heart disease Grandmother No problems noted. Mother Diabetes mellitus, type 2 Pancreatic cancer Other CAD (coronary artery disease) Kidney stones Social History Smoking and tobacco/nicotine status: current every day tobacco/nicotine user cigarettes Packs smoked per day: 0.25 [ Other cigarette details: 7.5 pack years] Quit status (tobacco/nicotine): considering quitting Alcohol intake: never Substance/Drug Use: current Substance/Drug use frequency: daily Marital status: Number of children: 1 Physical Exam 2 Narrative: EXAM NARRATIVE: General: Alert, no acute distress. Skin: Warm, dry. Head: Normocephalic, atraumatic. Neck: Supple, trachea midline. Eye: Extraocular movements are intact. Ears, nose, mouth and throat: mucosa moist. Cardiovascular: Regular, Normal peripheral perfusion. Respiratory: Lungs are clear to auscultation, respirations are non-labored, breath sounds are equal, Symmetrical chest wall expansion. Gastrointestinal: Soft, Nontender, Non distended, Normal bowel sounds. Musculoskeletal: Normal ROM, no deformity. Neurological: Alert and oriented, No focal neurological deficit observed. Psychiatric: Cooperative, appropriate mood & affect. Course 2 Vital Signs: Vital signs: Vital Signs Temperature 98 F 11/08/23 07:42 Pulse Rate 49 L 11/08/23 09:49 Respiratory Rate 18 11/08/23 09:49 Blood Pressure 116/73 11/08/23 09:49 Pulse Oximetry 100 11/08/23 09:49 Oxygen Delivery Me thod Room Air 11/08/23 09:49 MDM - Dizziness Medical Decision Making Medical decision making: Differential diagnosis including but not limited to and based on the above HPI, review of systems and physical exam: Orders placed to evaluate differential diagnosis based on the above differential, HPI and physical exam Lab Review: Laboratory results were reviewed and interpreted by myself the emergency room physician. Lab work is fairly unremarkable. White count is 5.7. Hemoglobin is 14.5. BUN and creatinine are 7 and 0.8. She does have very early signs of urinary tract infection in her urine. Serial cardiac markers are negative. EKG: Time 744 rate 79 normal sinus rhythm, No ST-T changes, no ectopy, normal OK & QRS intervals, This was reviewed and interpreted by myself the ER physician at 750. Repeat EKG: Time 1007 rate 49 sinus bradycardia, No ST-T changes, no ectopy, normal OK & QRS intervals, This was reviewed and interpreted by myself the ER physician at 1010. I reviewed the patient's medical record. Reexamination: Patient remained stable. Orthostatic vital signs were negative. No increased work of breathing. No altered mental status. Heart rate was initially in the 80s and was dropped down into the upper 40s and lower 50s. Lab Data 11/08/23 07:48 11/08/23 07:48 Laboratory Results WBC 5.75 10^3/uL (3.29-11.43) 11/08/23 07:48 RBC 4.51 10^6/uL (3.85-5.65) 11/08/23 07:48 Hgb 14.50 g/dL (11.27-16.99) 11/08/23 07:48 Hct 42.4 % (36-47) 11/08/23 07:48 MCV 94.0 fl (85-98) 11/08/23 07:48 MCH 32.2 pg (27-33) 11/08/23 07:48 MCHC 34.2 g/dL (30-55) 11/08/23 07:48 RDW 12.0 % (12.1-15.1) L 11/08/23 07:48 Plt Count 338 10^3/cmm (157-399) 11/08/23 07:48 MPV 8.8 fL (7.4-10.4) 11/08/23 07:48 Neut % (Auto) 57.2 % 11/08/23 07:48 Lymph % (Auto) 35.1 % 11/08/23 07:48 Bee % (Auto) 4.9 % 11/08/23 07:48 Eos % (Auto) 1.9 % 11/08/23 07:48 Baso % (Auto) 0.7 % 11/08/23 07:48 Neut # (Auto) 3.29 10^3/uL (1.8-7.7) 11/08/23 07:48 Lymph # (Auto) 2.0 10^3/uL (0.8-4.8) 11/08/23 07:48 Bee # (Auto) 0.3 10^3/uL (0.2-0.9) 11/08/23 07:48 Eos # (Auto) 0.1 10^3/uL (0.0-0.8) 11/08/23 07:48 Baso # (Auto) 0.0 10^3/uL (0.0-0.1) 11/08/23 07:48 Nucleated RBC % (auto) 0 % 11/08/23 07:48 Nucleated RBCs # 0.0 /100WBC 11/08/23 07:48 Sodium 141 mmol/L (136-145) 11/08/23 07:48 Potassium 3.7 mmol/L (3.5-5.1) 11/08/23 07:48 Chloride 103 mmol/L (98-107) 11/08/23 07:48 Carbon Dioxide 26 mmol/L (22-29) 11/08/23 07:48 Anion Gap 15.7 (5-19) 11/08/23 07:48 BUN 7 mg/dL (6-20) 11/08/23 07:48 Creatinine 0.8 mg/dL (0.5-0.9) 11/08/23 07:48 GFR Calculation 78.3 mL/min (90-130) L 11/08/23 07:48 Glucose 115 mg/dL (65-115) 11/08/23 07:48 Calculated Osmolality 291 mOsm/kg (285-295) 11/08/23 07:48 Lactic Acid 1.7 mmol/L (0.5-2.2) 11/08/23 07:58 Calcium 9.2 mg/dL (8.5-10.5) 11/08/23 07:48 Total Bilirubin 0.3 mg/dL (0.15-1.2) 11/08/23 07:48 AST 14 U/L (0-32) 11/08/23 07:48 ALT 11 U/L (0-33) 11/08/23 07:48 Alkaline Phosphatase 60 U/L (35-105) 11/08/23 07:48 Troponin T Baseline < 6 ng/L (0-10) 11/08/23 07:48 Troponin T 120 Minute 6.00 ng/L (0-10) 11/08/23 09:40 Delta Troponin T 0.50723 ABS# (0-10) 11/08/23 09:40 C-Reactive Protein 3.0 mg/L (0.0-4.9) 11/08/23 07:48 Total Protein 6.9 g/dL (6.6-8.7) 11/08/23 07:48 Albumin 4.7 g/dL (3.5-5.2) 11/08/23 07:48 Globulin 2.2 g/dL (1.3-4.6) 11/08/23 07:48 Lipase 14 U/L (13-60) 11/08/23 07:48 Urine Color Straw (Yellow) 11/08/23 08:35 Urine Appearance Clear (CLEAR) 11/08/23 08:35 Urine pH 7 (5-7) 11/08/23 08:35 Ur Specific [place] 1.005 (1.005-1.030) 11/08/23 08:35 Urine Protein Neg (Negative) 11/08/23 08:35 Urine Glucose (UA) Norm (Normal) 11/08/23 08:35 Urine Ketones Negative (Negative) 11/08/23 08:35 Urine Blood Neg (Negative) 11/08/23 08:35 Urine Nitrate Negative (Negative) 11/08/23 08:35 Urine Bilirubin Neg (Negative) 11/08/23 08:35 Urine Urobilinogen Norm mg/dL (Negative) 11/08/23 08:35 Ur Leukocyte Esterase Negative (Negative) 11/08/23 08:35 Urine RBC 0-4 /hpf (0-2) H 11/08/23 08:35 Urine WBC 0-4 /hpf (0-5) H 11/08/23 08:35 Ur Squamous Epith Cells 0-4 /hpf (0-5) H 11/08/23 08:35 Amorphous Sediment Not Reportable 11/08/23 08:35 Urine Bacteria Trace /hpf (NONE) 11/08/23 08:35 Urine Mucus Trace /hpf 11/08/23 08:35 Influenza Type A Ag negative (Negative) 11/08/23 07:48 Influenza Type B Ag negative (Negative) 11/08/23 07:48 SARS-CoV-2 Ag (Rapid) negative (Negative) 11/08/23 07:48 No radiology studies performed this visit Other Data Assessment and plan: Urinary tract infection Nausea and vomiting Dehydration -IV Rocephin, normal saline bolus - Discharged home - Discussed plan with patient. Answered any questions. - Evaluation and treatment of this problem were appropriate in the emergency setting. Discharge Plan Discharge Patient Disposition: Home Clinical Impression: Urinary tract infection, Nausea and vomiting, Dehydration Condition: Stable Prescriptions: New ondansetron 8 mg tablet,disintegrating 8 mg PO .q6 PRN (Reason: nausea and vomiting) Qty: 14 0RF cefdinir 300 mg capsule 300 mg PO BID 5 Days Qty: 10 0RF No Action ondansetron HCl 4 mg tablet 4 mg PO Q8H PRN (Reason: Nausea And Vomiting) docusate sodium 100 mg capsule 200 mg PO DAILY polyethylene glycol 3350 17 gram/dose powder 4 g PO DAILY diclofenac sodium 50 mg tablet,delayed release (DR/EC) 50 mg PO BID 14 Days Qty: 28 0RF methocarbamol 500 mg tablet 500 mg PO TID PRN (Reason: for muscle pain) 14 Days Qty: 42 0RF hydroxyzine HCl 50 mg tablet 50 mg PO BEDTIME PRN (Reason: insomnia) Discharge Orders: Discharge ED (Routine); Ordered 11/08/23 Ordered By: Manjula Calvo Referrals: Segun Rider, VEGET[facility] SCULLION [Primary Care Provider] - (You have been screened and evaluated and felt safe for discharge. Health conditions do change or evolve sometimes and as such it is important that you follow up with your Primary Doctor to be re checked, 3-5 days is a general good time frame for follow up. You are always welcome to return to the ED for re assessment if your symptoms are worsening or you have new concerns) Patient Instructions: Urinary Tract Infection in Women (ED) Coding Level of Care Code ED Concaver for Jose Palafox
[2023-11-08 07:58] LABS: Basophils % 0.7 %; Eosinophils # 0.1 10^3/uL (0.0-0.8); Eosinophils % 1.9 %; Hematocrit 42.4 % (36-47); Lymphocytes % 35.1 %; Mean Corpuscular HGB Conc 34.2 g/dL (30-55); Mean Corpuscular Hemoglobin 32.2 pg (27-33); Mean Platelet Volume 8.8 fL (7.4-10.4); Monocytes # 0.3 10^3/uL (0.2-0.9); Monocytes % 4.9 %; Neutrophils # 3.29 10^3/uL (1.8-7.7); Neutrophils % 57.2 %; Nucleated Red Blood Cells % 0 %; Platelet Count 338 10^3/cmm (157-399); Red Blood Count 4.51 10^6/uL (3.85-5.65); White Blood Count 5.75 10^3/uL (3.29-11.43)
[2023-11-08 08:13] LABS: Alanine Aminotransferase 11 U/L (0-33); Albumin Level 4.7 g/dL (3.5-5.2); Alkaline Phosphatase 60 U/L (35-105); Anion Gap 15.7 (5-19); Aspartate Amino Transferase 14 U/L (0-32); Blood Urea Nitrogen 7 mg/dL (6-20); Calcium 9.2 mg/dL (8.5-10.5); Carbon Dioxide 26 mmol/L (22-29); Chloride 103 mmol/L (98-107); Creatinine Clr Calc Pharmacy 78.7667; Globulin 2.2 g/dL (1.3-4.6); Glomerular Filtration Rate 78.3 mL/min (90-130); Glucose 115 mg/dL (65-115); Lipase 14 U/L (13-60); Osmolality Calculated 291 mOsm/kg (285-295); Potassium 3.7 mmol/L (3.5-5.1); Sodium 141 mmol/L (136-145); Total Bilirubin 0.3 mg/dL (0.15-1.2); Total Protein 6.9 g/dL (6.6-8.7)
[2023-11-08 08:15] LABS: Troponin(5th) Baseline < 6 ng/L (0-10)
[2023-11-08 08:18] VITALS: BP 112/65; BP 122/76; BP 123/74; PULSE 59; PULSE 63; PULSE 83
[2023-11-08 08:20] LABS: Influenza A by IFA negative (Negative); Influenza B by IFA negative (Negative)
[2023-11-08 08:21] LABS: Lactic Sepsis W/Reflex 1.7 mmol/L (0.5-2.2)
[2023-11-08 08:22] LABS: SARS Covid-2 Antigen negative (Negative)
[2023-11-08 08:45] LABS: Urine Appearance Clear (CLEAR); Urine Color Straw (Yellow); pH Urine 7 (5-7)
[2023-11-08 08:46] LABS: Bilirubin Urine Neg (Negative); Blood Urine Neg (Negative); Glucose Urine UA Norm (Normal); Ketones Urine Negative (Negative); Leukocyte Esterase Urine Negative (Negative); Nitrate Urine Negative (Negative); Protein Urine Neg (Negative); Specific Gravity, Urine 1.005 (1.005-1.030); Urobilinogen Urine Norm (Negative)
[2023-11-08 09:05] LABS: RBC Urine 0-4 /hpf (0-2); WBC Urine 0-4 /hpf (0-5)
[2023-11-08 09:06] LABS: Add Urine Culture? No; Bacteria Urine TRACE /hpf; Mucus Urine TRACE /hpf; Squamous Epithelial Cell Urine 0-4 /hpf (0-5)
[2023-11-08] MEDS: sodium chloride 0.9% 500 ML 999 ML IV (09:42)
[2023-11-08] MEDS: cefTRIAXone 1,000 MG in sodium chloride 0.9% (plus) 50 ML 100 MG IV (09:43)
--- NOTE | 2023-11-08 09:44 | ECG_ITS ---
[facility] Test Date: 2023-11-08 Pat Name: Rhiannon Byrne Department: Room: Gender: Female Line Erector: : 1980 Requested By: Manjula Bojorquez Order Number: [id number] Cheatham MD: Constantin Nguyen M.D. Measurements Intervals [place] Rate: 49 P: 46 WV: 157 QRS: 55 QRSD: 96 T: 62 QT: 445 QTc: 402 Interpretive Statements SINUS BRADYCARDIA Compared to ECG 10/24/2023 23:20:29 Atrial fibrillation no longer present Right-axis deviation no longer present Electronically Signed On 11-08-2023 15:12:49 CDT by Constantin Nguyen M.D. [email or web address]
[2023-11-08 09:49] VITALS: BP 116/73; PULSE 49; RESP 18; O2SAT 100
[2023-11-08 10:13] LABS: Troponin 5 2HR Delta 0.00001 ABS# (0-10)
[2023-11-08 10:49] VITALS: BP 116/73; PULSE 49; RESP 18; O2SAT 100
== END 2023-11-08 10:55 | disposition home or self-care (01) ==
PROVIDERS: Emergency Provider Emergency Medicine; PCP Clinical Nurse Specialist Adult Health
DX: N39.0 Urinary tract infection, site not specified (principal); R11.2 Nausea with vomiting, unspecified; E86.0 Dehydration; Z11.52 Encounter for screening for COVID-19; F17.210 Nicotine dependence, cigarettes, uncomplicated
CPT/HCPCS: 36415; 80053; 81001; 83605; 83690; 84484; 85025; 86140; 87040; 87426; 87804; 93005; 96374; 99284; J0696; J7040

== ENCOUNTER → 2023-11-13 08:10 | Outpatient (BNVA) | payer OTHER, SELFPAY | PROVIDERS: PCP Clinical Nurse Specialist Adult Health; Visit Provider Clinical Nurse Specialist Adult Health | DX: N39.0 Urinary tract infection, site not specified (principal) | CPT/HCPCS: 81003; 87086 ==

== ENCOUNTER → 2025-04-20 14:33 | Outpatient (BNVA) | payer BC, MEDICAID, SELFPAY | DX: Z76.89 Persons encountering health services in other specified circumstances (principal) | CPT/HCPCS: 80053; 80061; 81000; 84443; 85025 ==

== ENCOUNTER → 2025-05-21 10:12 | Outpatient (BNVA) | payer BC, MEDICAID, SELFPAY | DX: N20.0 Calculus of kidney (principal) | CPT/HCPCS: 81000; 87086 ==

== ENCOUNTER 2025-06-05 08:18 | Outpatient (CLI) | payer BC, MEDICAID, SELFPAY ==
[2025-06-05] MEDS: iohexol 350 mg/mL 500 mL Btl (per mL) IV (08:39)
--- NOTE | 2025-06-05 08:45 | CT_ITS ---
WS: [id number] CT ABDOMEN AND PELVIS WITH CONTRAST HISTORY: recurrent kidney stones TECHNIQUE: Imaging performed of the abdomen and pelvis with IV contrast. Single phase imaging of the abdomen. Coronal and sagittal reformats are submitted. All CT scans at [facility] use at least one of these dose optimization techniques: automated exposure control; mA and/or kV adjustment per patient size (includes targeted exams where dose is matched to clinical indication); or iterative reconstruction. IV CONTRAST: Omnipaque 350; 100 mL IV. Oral contrast: No DLP: 277.67 mGy.cm COMPARISON: 10/24/2023 Lower thorax: Lung bases are clear. Heart is normal size. Small hiatal hernia. Liver/biliary system: Normal size with no intrahepatic dilatation. Gallbladder: Normal. No gallstones or wall thickening. No pericholecystic fluid. Pancreas: Normal size pancreas and pancreatic duct. No adjacent inflammation. Spleen: Normal size spleen. No mass or infarct. Adrenal glands: Normal. Right kidney: Normal size kidney with no hydronephrosis. There are a few nonobstructing very small calcifications in the renal pelvis. Cortical cyst in the lower pole with the largest 7 mm. Left kidney: Normal size kidney with no obstruction. Nonobstructing calcification measuring 5 mm in the upper pole. No perinephric stranding. Normal size ureter. Aorta: Normal. Lymphadenopathy: None. Free fluid: None. GI tract: Bariatric surgery changes at the stomach. No small bowel obstruction. Marked diffuse constipation with tortuous colon. No colitis. Prior appendectomy. Abdominal wall: Postsurgical scar along the anterior abdominal wall. No hernias. Pelvis: Prior hysterectomy. No free fluid. Urinary bladder is not distended. Bones: Unremarkable. CT/CT abdomen pelvis w con* [id number] IMPRESSION: 1. No renal obstruction. 2. Nonobstructing small bilateral renal calculi. 3. No perinephric stranding. 4. Prior appendectomy. 5. Prior hysterectomy. 6. Marked diffuse constipation with tortuous loops of colon. 7. No ascites or adenopathy.
== END 2025-06-05 08:19 | disposition home or self-care (01) ==
LOC: RAD 08:19
DX: N20.0 Calculus of kidney (principal); Z90.89 Acquired absence of other organs; Z90.710 Acquired absence of both cervix and uterus; K59.09 Other constipation
CPT/HCPCS: 74177